=== PATIENT | male | born 1990 | race Caucasian/White ===

== ENCOUNTER 2016-10-02 15:02 | Emergency (ER) | payer OTHER ==
[2016-10-02 15:38] VITALS: BP 108/90; PULSE 74; RESP 18; TEMP 97.8
[2016-10-02] MEDS ORDERED: diphenhydrAMINE 50 MG CAP PO STA (15:44)
--- NOTE | 2016-10-02 15:50 | ED ---
Skin/Abscess/FB HPI - General Chief complaint: Skin/Abscess/Foreign Body Stated complaint: Poss Bug Bites/Leg Time Seen by Provider: 10/02/16 15:38 Source: patient, RN notes reviewed Mode of arrival: EMS Limitations: no limitations - History of Present Illness Initial comments: 26-year-old male presents to the ER with rash on his legs and arms and stomach. He states that his girlfriend was in the ER last night and was diagnosed with scabies. His rash is much worse than hers and he does state that the itching is severe. He states that the itching has woke him up in the middle of night and he has obvious scratch correa on his legs. He has not used anything up until this point to treat it. He denies any constitutional symptoms including fever, nausea, vomiting, diarrhea, vision change, headache, numbness or tingling in the extremities. - Related Data Previous Rx's Medication Instructions Recorded Permethrin 5% Cream [Elimite] 1 applic TOPICAL ONCE #2 tube 10/02/16 Allergies Allergy/AdvReac Type Severity Reaction Status Date / Time coconut Allergy Anaphylaxis Verified 10/02/16 15:38 Review of Systems ROS Statement: Those systems with pertinent positive or pertinent negative responses have been documented in the HPI. ROS Other: All systems not noted in ROS Statement are negative. Past Medical History Past Medical History: No Reported History History of Any Multi-Drug Resistant Organisms: None Reported Past Surgical History: No Surgical Hx Reported Past Psychological History: No Psychological Hx Reported Smoking Status: Current every day smoker Past Alcohol Use History: None Reported Past Drug Use History: Marijuana General Exam Limitations: no limitations General appearance: alert, in no apparent distress Head exam: Present: atraumatic, normocephalic Eye exam: Present: normal appearance, PERRL, EOMI Pupils: Present: normal accommodation ENT exam: Present: normal exam Neck exam: Present: normal inspection Respiratory exam: Present: normal lung sounds bilaterally Cardiovascular Exam: Present: regular rate, normal rhythm GI/Abdominal exam: Present: soft Neurological exam: Present: alert, oriented X3, CN II-XII intact Psychiatric exam: Present: normal affect, normal mood Skin exam: Present: rash (Scattered 1-3 mm erythematous macules and papules on the bilateral lower legs, bilateral hands and wrists, and the abdomen surrounding the umbilicus. Linear excoriations on bilateral lower legs bilateral forearms and abdomen.) Course Vital Signs 10/02/16 15:35 Temperature 97.8 F Pulse Rate 74 Respiratory 18 Rate Blood Pressure 108/90 O2 Sat by Pulse 98 Oximetry Medical Decision Making - Medical Decision Making 26-year-old male presents to the ER with his girlfriend with a rash. Upon examination of the rash does appear to be scabies. Discussed hygiene and cleaning at home. Discussed the contagious nature of the parasite. Recommend not going to work until finishing the Elimite treatment 24 hours after that. Was prescribed Elimite and to repeat one to 2 weeks later if still having active pumping. Was given Benadryl in the ER to help subside itching. Was instructed that he may take Benadryl at home as well and Claritin during the day. QUESTIONS were answered and patient is to return to ER with any worsening symptoms or concerns. Recommended follow-up with primary care physician this week. All questions answered and patient agreeable with plan. 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 To f/u with PCP. To return to ER with any worsening symptoms or concerns. Prescriptions: Permethrin 5% Cream [Elimite] 1 applic TOPICAL ONCE #2 tube Referrals: Vincenzo Quiles MD [Primary Care Provider] - 1-2 days Time of Disposition: 15:50
== END 2016-10-02 16:00 | disposition home or self-care (01) ==
LOC: EC 15:02
DX: B86 Scabies (principal); F17.200 Nicotine dependence, unspecified, uncomplicated; Z91.018 Allergy to other foods
CPT/HCPCS: 99283